=== PATIENT | male | born 1940 | race Caucasian/White ===

== ENCOUNTER 2019-06-04 15:17 | Inpatient (IN) | payer MEDICARE, OTHER ==
[~2019-06-04] VITALS: Ht 175.3 cm; Wt 61.9 kg
[2019-06-04] MEDS ORDERED: SODIUM CHLORIDE 0.9% 1,000 ML IV ONE (15:35)
[2019-06-04 15:57] LABS: BASOPHILS # (AUTO) 0.08 x10^3/uL (0-0.1); BASOPHILS % (AUTO) 1 % (0-1); EOSINOPHILS # (AUTO) 0.17 x10^3/uL (0-0.4); EOSINOPHILS % (AUTO) 2 % (1-7); LYMPHOCYTES # (AUTO) 2.66 x10^3/uL (1-3.4); LYMPHOCYTES % (AUTO) 30 % (22-44); MD NO; MEAN CORPUSCULAR HEMOGLOBIN 29.7 pg (27.5-34.5); MEAN CORPUSCULAR HGB CONC 31.4 g/dL (33.2-36.2); MEAN CORPUSCULAR VOLUME 94.7 fL (81-97); MEAN PLATELET VOLUME 6.6 fL (7.4-10.4); MONOCYTES # (AUTO) 0.63 x10^3/uL (0.2-0.8); MONOCYTES % (AUTO) 7 % (2-9); NEUTROPHILS # (AUTO) 5.28 x10^3/uL (1.8-6.8); NEUTROPHILS % (AUTO) 60 % (42-75); PLATELET COUNT 644 x10^3/uL (130-400); RED BLOOD COUNT 2.94 x10^6/uL (4.38-5.82); RED CELL DISTRIBUTION WIDTH 19.5 % (9.4-14.8)
[2019-06-04] MEDS ORDERED: SODIUM CHLORIDE 0.9% 1,000ML IVBOLUS ONE (16:00)
[2019-06-04] MEDS ORDERED: SODIUM CHLORIDE FLUSH 10ML SYR IVF ONE (16:00)
--- NOTE | 2019-06-04 16:00 | NUR ---
FIRST CONTACT WITH PT. PT SENT HERE BY RADIOLOGIST FOR ABNORMAL BARIUM SWALLOW EVAL. LAST TIME EATING/DRINKING AT 2200 06/03/19. PT'S AOX4. RESPS EVEN AND UNLABORED. PT DENIES ANY SX AT THIS TIME. BP/SPO2 MONITORS IN PLACE. CALL LIGHT WITHIN REACH.
[2019-06-04 16:08] LABS: ALANINE AMINOTRANSFERASE 10 U/L (12-78); ALBUMIN 2.2 g/dL (3.4-5.0); ANION GAP 7 mmol/L (5-15); CALCIUM 9.7 mg/dL (8.5-10.1); CHLORIDE 103 mmol/L (98-107); CREATININE 1.11 mg/dL (0.7-1.3)
[2019-06-04 16:11] LABS: ALKALINE PHOSPHATASE 54 U/L (45-117); BILIRUBIN,TOTAL 0.2 mg/dL (0.2-1.0); TOTAL PROTEIN 7.2 g/dL (6.4-8.2)
--- NOTE | 2019-06-04 16:17 | NUR ---
NS INFUSING AT THIS TIME. PT TOLERATED WELL.
--- NOTE | 2019-06-04 16:22 | NUR ---
PT PROVIDED URINE SAMPLE AT THIS TIME. UA SENT.
--- NOTE | 2019-06-04 16:22 | NUR ---
HOSPITALIST AT BEDSIDE AT THIS TIME.
[2019-06-04 16:30] LABS: MICROSCOPIC NOT IND
[2019-06-04] MEDS ORDERED: SODIUM CHLORIDE FLUSH 10ML SYR IVF PRN (16:30)
[2019-06-04 16:36] LABS: CULTURE INDICATED? NO
[2019-06-04] MEDS ORDERED: METH2.5T PO (16:52)
[2019-06-04] MEDS ORDERED: FOLI-17 PO (16:52)
[2019-06-04] MEDS ORDERED: OMEP40CA42 PO (16:53)
[2019-06-04] MEDS ORDERED: ONDA4TAB13 SL (16:53)
[2019-06-04] MEDS ORDERED: VALA500T PO (16:54)
[2019-06-04] MEDS ORDERED: METO25TA35 PO (16:54)
[2019-06-04] MEDS ORDERED: ASCO1500 PO (16:55)
[2019-06-04] MEDS ORDERED: ACETAMINOPHEN 325 MG TABLET PO PRN (17:00)
[2019-06-04] MEDS ORDERED: hydrALAzine 20 MG/ML, 1ML IVPush PRN (17:00)
[2019-06-04] MEDS ORDERED: PROMETHAZINE 25 MG/ML, 1ML IM PRN (17:00)
[2019-06-04] MEDS ORDERED: ONDANSETRON 2MG/ML, 2ML IVPush PRN (17:00)
[2019-06-04] MEDS ORDERED: LABETALOL 5MG/ML, 20ML IVPush PRN (17:00)
--- NOTE | 2019-06-04 18:36 | NUR ---
REPORT GIVEN TO NIELS KENT. ALL QUESTIONS ANSWERED.
[2019-06-04 19:29] VITALS: BP 148/78
[2019-06-04] MEDS: SODIUM CHLORIDE 0.9% 1,000 ML IV SCH (19:54)
[2019-06-04] MEDS: PANTOPRAZOLE 40 MG IV IVPush SCH (20:49)
[2019-06-05 02:14] VITALS: BP 126/64
[2019-06-05] MEDS: SODIUM CHLORIDE 0.9% 1,000 ML IV SCH ×3 (04:44→21:00)
[2019-06-05 05:50] LABS: BASOPHILS # (AUTO) 0.04 x10^3/uL (0-0.1); BASOPHILS % (AUTO) 1 % (0-1); EOSINOPHILS # (AUTO) 0.34 x10^3/uL (0-0.4); EOSINOPHILS % (AUTO) 4 % (1-7); LYMPHOCYTES # (AUTO) 2.35 x10^3/uL (1-3.4); LYMPHOCYTES % (AUTO) 28 % (22-44); MD NO; MEAN CORPUSCULAR HEMOGLOBIN 30.8 pg (27.5-34.5); MEAN CORPUSCULAR HGB CONC 31.9 g/dL (33.2-36.2); MEAN CORPUSCULAR VOLUME 96.4 fL (81-97); MEAN PLATELET VOLUME 6.8 fL (7.4-10.4); MONOCYTES # (AUTO) 0.59 x10^3/uL (0.2-0.8); MONOCYTES % (AUTO) 7 % (2-9); NEUTROPHILS # (AUTO) 5.11 x10^3/uL (1.8-6.8); NEUTROPHILS % (AUTO) 61 % (42-75); PLATELET COUNT 530 x10^3/uL (130-400); RED BLOOD COUNT 2.57 x10^6/uL (4.38-5.82); RED CELL DISTRIBUTION WIDTH 19.1 % (9.4-14.8)
[2019-06-05 06:07] LABS: ALANINE AMINOTRANSFERASE 7 U/L (12-78); ALBUMIN 1.6 g/dL (3.4-5.0); ANION GAP 9 mmol/L (5-15); CALCIUM 8.3 mg/dL (8.5-10.1); CHLORIDE 108 mmol/L (98-107); CREATININE 0.94 mg/dL (0.7-1.3)
[2019-06-05 06:09] LABS: ALKALINE PHOSPHATASE 46 U/L (45-117); BILIRUBIN,TOTAL 0.3 mg/dL (0.2-1.0); TOTAL PROTEIN 5.8 g/dL (6.4-8.2)
[2019-06-05 07:18] VITALS: BP 124/60
[2019-06-05] MEDS: PANTOPRAZOLE 40 MG IV IVPush SCH ×2 (09:53→22:30)
[2019-06-05 12:27] VITALS: BP 146/72
[2019-06-05] MEDS ORDERED: HEMORRHOIDAL OINT, 28 GM (PREP H) RC PRN (16:00)
[2019-06-05 19:08] VITALS: BP 136/56
[2019-06-06 01:00] VITALS: BP 156/55
[2019-06-06] MEDS: SODIUM CHLORIDE 0.9% 1,000 ML IV SCH (05:01)
[2019-06-06 06:57] LABS: BASOPHILS # (AUTO) 0.03 x10^3/uL (0-0.1); BASOPHILS % (AUTO) 1 % (0-1); EOSINOPHILS # (AUTO) 0.19 x10^3/uL (0-0.4); EOSINOPHILS % (AUTO) 3 % (1-7); LYMPHOCYTES # (AUTO) 1.66 x10^3/uL (1-3.4); LYMPHOCYTES % (AUTO) 22 % (22-44); MD NO; MEAN CORPUSCULAR HEMOGLOBIN 30.6 pg (27.5-34.5); MEAN CORPUSCULAR HGB CONC 31.8 g/dL (33.2-36.2); MEAN CORPUSCULAR VOLUME 95.9 fL (81-97); MEAN PLATELET VOLUME 6.5 fL (7.4-10.4); MONOCYTES # (AUTO) 0.52 x10^3/uL (0.2-0.8); MONOCYTES % (AUTO) 7 % (2-9); NEUTROPHILS # (AUTO) 5.13 x10^3/uL (1.8-6.8); NEUTROPHILS % (AUTO) 68 % (42-75); PLATELET COUNT 572 x10^3/uL (130-400); RED BLOOD COUNT 2.89 x10^6/uL (4.38-5.82); RED CELL DISTRIBUTION WIDTH 19.8 % (9.4-14.8)
[2019-06-06 07:06] LABS: ANION GAP 13 mmol/L (5-15); CALCIUM 8.5 mg/dL (8.5-10.1); CHLORIDE 109 mmol/L (98-107); CREATININE 0.91 mg/dL (0.7-1.3)
[2019-06-06 07:13] VITALS: BP 127/75
[2019-06-06] MEDS ORDERED: DEXTROSE 50%, 50ML SYRINGE IVPush ONE (08:00)
[2019-06-06] MEDS: D5%-0.45% NACL 1,000 ML IV SCH ×2 (08:19→21:18)
[2019-06-06] MEDS: PANTOPRAZOLE 40 MG IV IVPush SCH ×2 (08:20→21:17)
[2019-06-06] MEDS: IRON SUCROSE COMPLEX 100MG/5ML IV SCH (08:20)
[2019-06-06] MEDS ORDERED: BUPIVACAINE/PF 0.5% ONE (09:25)
[2019-06-06] MEDS ORDERED: FENTANYL PF 250 MCG/5ML ONE (09:58)
[2019-06-06] MEDS ORDERED: MEPERIDINE/PF 100 MG/ML ONE (11:33)
[2019-06-06] MEDS ORDERED: DEXAMETHASONE 4 MG/ML, 1ML ONE (11:46)
[2019-06-06] MEDS ORDERED: PROPOFOL 10 MG/ML, 20ML ONE (11:46)
[2019-06-06] MEDS ORDERED: GLYCOPYRROLATE 0.2MG/1ML, 5ML ONE (11:46)
[2019-06-06] MEDS ORDERED: ONDANSETRON 2MG/ML, 2ML ONE (11:46)
[2019-06-06] MEDS ORDERED: SUCCINYLCHOLINE 20 MG/ML, 10ML ONE (11:46)
[2019-06-06] MEDS ORDERED: ROPIvacaine/PF 0.2%, 20 ML ONE ×2 (11:46)
[2019-06-06] MEDS ORDERED: NEOSTIGMINE 1 MG/ML, 10ML ONE (11:46)
[2019-06-06] MEDS ORDERED: CEFAZOLIN 1,000 MG ONE (11:46)
[2019-06-06] MEDS ORDERED: ROCURONIUM 10MG/ML,5ML ONE (11:46)
[2019-06-06] MEDS ORDERED: FENTANYL PF 100 MCG/2ML ONE (12:11)
[2019-06-06] MEDS ORDERED: HYDROmorphone 2 MG/ML, 1ML ONE (12:12)
[2019-06-06] MEDS: FENTANYL PF 100 MCG/2ML IV PRN ×2 (12:12→12:26)
[2019-06-06] MEDS: HYDROmorphone 2 MG/ML, 1ML IVPush PRN ×3 (12:15→12:44)
[2019-06-06] MEDS ORDERED: hydrALAzine 20 MG/ML, 1ML IV PRN (12:30)
[2019-06-06] MEDS ORDERED: DIAZEPAM 5 MG/ML, 2ML IVPush PRN (12:30)
[2019-06-06] MEDS ORDERED: HALOPERIDOL 5 MG/ML IV PRN (12:30)
[2019-06-06] MEDS ORDERED: MEPERIDINE/PF 25MG/ML,1ML IVPush PRN (12:30)
[2019-06-06] MEDS ORDERED: PROMETHAZINE 25 MG/ML, 1ML IV PRN (12:30)
[2019-06-06] MEDS ORDERED: LABETALOL 5MG/ML, 20ML IV PRN (12:30)
[2019-06-06] MEDS ORDERED: DIAZEPAM 5 MG/ML, 2ML ONE (12:49)
[2019-06-06 14:00] VITALS: BP 151/69
[2019-06-06] MEDS: morphine SULFATE 10 MG/ML, 1ML IVPush PRN ×2 (15:03→21:17)
[2019-06-06 20:00] VITALS: BP 159/78
[2019-06-06 23:52] VITALS: BP 160/68
[2019-06-07] MEDS: morphine SULFATE 10 MG/ML, 1ML IVPush PRN ×3 (02:37→13:56)
[2019-06-07 03:25] VITALS: BP 157/74
[2019-06-07] MEDS ORDERED: TPN PER PHARMACY MC PRN (05:00)
[2019-06-07] MEDS: D5%-0.45% NACL 1,000 ML IV SCH (05:39)
[2019-06-07 06:10] LABS: BASOPHILS # (AUTO) 0.03 x10^3/uL (0-0.1); BASOPHILS % (AUTO) 0 % (0-1); EOSINOPHILS # (AUTO) 0.15 x10^3/uL (0-0.4); EOSINOPHILS % (AUTO) 1 % (1-7); LYMPHOCYTES # (AUTO) 1.97 x10^3/uL (1-3.4); LYMPHOCYTES % (AUTO) 14 % (22-44); MD NO; MEAN CORPUSCULAR HEMOGLOBIN 30.3 pg (27.5-34.5); MEAN CORPUSCULAR HGB CONC 31.5 g/dL (33.2-36.2); MEAN CORPUSCULAR VOLUME 96.2 fL (81-97); MEAN PLATELET VOLUME 6.8 fL (7.4-10.4); MONOCYTES # (AUTO) 1.07 x10^3/uL (0.2-0.8); MONOCYTES % (AUTO) 8 % (2-9); NEUTROPHILS # (AUTO) 11.03 x10^3/uL (1.8-6.8); NEUTROPHILS % (AUTO) 77 % (42-75); PLATELET COUNT 567 x10^3/uL (130-400); RED BLOOD COUNT 2.84 x10^6/uL (4.38-5.82); RED CELL DISTRIBUTION WIDTH 19.4 % (9.4-14.8)
[2019-06-07 06:12] LABS: ALBUMIN 1.6 g/dL (3.4-5.0); ANION GAP 6 mmol/L (5-15); CALCIUM 8.2 mg/dL (8.5-10.1); CHLORIDE 107 mmol/L (98-107)
[2019-06-07 06:20] LABS: ALANINE AMINOTRANSFERASE 13 U/L (12-78); ALKALINE PHOSPHATASE 44 U/L (45-117); BILIRUBIN,TOTAL 0.2 mg/dL (0.2-1.0); CREATININE 1.56 mg/dL (0.7-1.3); PREALBUMIN 8.3 mg/dL (20.0-40.0); TOTAL PROTEIN 5.8 g/dL (6.4-8.2); TRIGLYCERIDES 63 mg/dL (50-200)
[2019-06-07] MEDS ORDERED: PHARMACY MAY ADJ FOR RENAL FX MC PRN (08:30)
[2019-06-07 08:54] VITALS: BP 157/68
[2019-06-07] MEDS: IRON SUCROSE COMPLEX 100MG/5ML IV SCH (10:13)
[2019-06-07] MEDS: PANTOPRAZOLE 40 MG IV IVPush SCH ×2 (10:13→21:59)
[2019-06-07] MEDS: SODIUM CHLORIDE 0.9% 1,000 ML IV SCH ×2 (10:14→17:32)
[2019-06-07] MEDS: CEFOTETAN PMX 1GM/50ML 50 ML IV SCH (12:49)
[2019-06-07 13:28] VITALS: BP 160/77
[2019-06-07] MEDS ORDERED: FAT EMUL IV SCH (17:00)
[2019-06-07] MEDS ORDERED: FILTER, DISP 1.2 MICRON FOR TPN/PVN IV PRN (17:00)
[2019-06-07] MEDS ORDERED: SMOF TPN IV SCH (17:00)
[2019-06-07] MEDS ORDERED: AMINO ACID 10% IV SCH (17:00)
[2019-06-07] MEDS ORDERED: DEXTROSE 10% 500 ML IV PRN (17:00)
[2019-06-07] MEDS ORDERED: MORPHINE SULFATE 4 MG/ML, 1ML IVPush PRN ×2 (17:00)
[2019-06-07] MEDS ORDERED: DEXTROSE 50%, 50ML SYRINGE IVPush PRN (17:00)
[2019-06-07] MEDS ORDERED: [UNRECOGNIZED DRUG - OTHER] IV SCH (17:00)
[2019-06-07] MEDS ORDERED: DEXTROSE 70% IV SCH (17:00)
[2019-06-07] MEDS: MORPHINE SULFATE 4 MG/ML, 1ML IVPush PRN ×2 (19:53→21:59)
[2019-06-07 20:28] VITALS: BP 145/73
[2019-06-07] MEDS: INSULIN REGULAR MEDIUM DOSE Q6H X 48HRS SQ-INSULIN SCH (21:00)
[2019-06-08] MEDS: SODIUM CHLORIDE 0.9% 1,000 ML IV SCH ×3 (00:18→17:27)
[2019-06-08] MEDS: CEFOTETAN PMX 1GM/50ML 50 ML IV SCH ×2 (00:18→12:21)
[2019-06-08] MEDS: MORPHINE SULFATE 4 MG/ML, 1ML IVPush PRN ×9 (00:18→23:10)
[2019-06-08 01:32] VITALS: BP 152/65
[2019-06-08] MEDS: INSULIN REGULAR MEDIUM DOSE Q6H X 48HRS SQ-INSULIN SCH ×4 (03:35→21:00)
[2019-06-08 06:51] LABS: BASOPHILS # (AUTO) 0.03 x10^3/uL (0-0.1); BASOPHILS % (AUTO) 0 % (0-1); EOSINOPHILS # (AUTO) 0.25 x10^3/uL (0-0.4); EOSINOPHILS % (AUTO) 2 % (1-7); LYMPHOCYTES # (AUTO) 2.25 x10^3/uL (1-3.4); LYMPHOCYTES % (AUTO) 21 % (22-44); MD NO; MEAN CORPUSCULAR HEMOGLOBIN 30.3 pg (27.5-34.5); MEAN CORPUSCULAR HGB CONC 31.4 g/dL (33.2-36.2); MEAN CORPUSCULAR VOLUME 96.5 fL (81-97); MEAN PLATELET VOLUME 6.8 fL (7.4-10.4); MONOCYTES # (AUTO) 0.79 x10^3/uL (0.2-0.8); MONOCYTES % (AUTO) 7 % (2-9); NEUTROPHILS # (AUTO) 7.54 x10^3/uL (1.8-6.8); NEUTROPHILS % (AUTO) 69 % (42-75); PLATELET COUNT 450 x10^3/uL (130-400); RED BLOOD COUNT 2.71 x10^6/uL (4.38-5.82); RED CELL DISTRIBUTION WIDTH 19.9 % (9.4-14.8)
[2019-06-08 06:57] LABS: CHLORIDE 109 mmol/L (98-107)
[2019-06-08 07:03] LABS: ANION GAP 6 mmol/L (5-15); CREATININE 1.16 mg/dL (0.7-1.3)
[2019-06-08 07:32] VITALS: BP 169/79
[2019-06-08] MEDS: PANTOPRAZOLE 40 MG IV IVPush SCH ×2 (08:18→21:02)
[2019-06-08] MEDS: IRON SUCROSE COMPLEX 100MG/5ML IV SCH (08:18)
[2019-06-08 13:17] VITALS: BP 144/66
[2019-06-08] MEDS ORDERED: SMOF TPN IV SCH (17:00)
[2019-06-08] MEDS ORDERED: AMINO ACID 10% IV SCH (17:00)
[2019-06-08] MEDS ORDERED: FAT EMUL IV SCH (17:00)
[2019-06-08] MEDS ORDERED: [UNRECOGNIZED DRUG - OTHER] IV SCH (17:00)
[2019-06-08] MEDS ORDERED: DEXTROSE 70% IV SCH (17:00)
[2019-06-08] MEDS: FILTER, DISP 1.2 MICRON FOR TPN/PVN IV PRN (17:26)
[2019-06-08 19:33] VITALS: BP 152/79
[2019-06-09 01:12] VITALS: BP 154/68
[2019-06-09] MEDS: INSULIN REGULAR MEDIUM DOSE Q6H X 48HRS SQ-INSULIN SCH ×3 (03:00→15:00)
[2019-06-09 06:07] LABS: BASOPHILS # (AUTO) 0.02 x10^3/uL (0-0.1); BASOPHILS % (AUTO) 0 % (0-1); EOSINOPHILS # (AUTO) 0.29 x10^3/uL (0-0.4); EOSINOPHILS % (AUTO) 3 % (1-7); LYMPHOCYTES # (AUTO) 1.83 x10^3/uL (1-3.4); LYMPHOCYTES % (AUTO) 19 % (22-44); MD NO; MEAN CORPUSCULAR HEMOGLOBIN 30.7 pg (27.5-34.5); MEAN CORPUSCULAR HGB CONC 32.1 g/dL (33.2-36.2); MEAN CORPUSCULAR VOLUME 95.6 fL (81-97); MONOCYTES # (AUTO) 0.67 x10^3/uL (0.2-0.8); MONOCYTES % (AUTO) 7 % (2-9); NEUTROPHILS # (AUTO) 6.68 x10^3/uL (1.8-6.8); NEUTROPHILS % (AUTO) 70 % (42-75); PLATELET COUNT 390 x10^3/uL (130-400); RED BLOOD COUNT 2.71 x10^6/uL (4.38-5.82); RED CELL DISTRIBUTION WIDTH 20.1 % (9.4-14.8)
[2019-06-09 06:14] LABS: ANION GAP 5 mmol/L (5-15); CHLORIDE 107 mmol/L (98-107); CREATININE 0.87 mg/dL (0.7-1.3)
[2019-06-09 07:28] VITALS: BP 167/74
[2019-06-09] MEDS: SENNA/DOCUSATE TABLET PO SCH (08:42)
[2019-06-09] MEDS: PANTOPRAZOLE 40 MG IV IVPush SCH ×2 (08:43→21:58)
[2019-06-09] MEDS: MORPHINE SULFATE 4 MG/ML, 1ML IVPush PRN ×4 (08:43→22:05)
[2019-06-09 12:45] VITALS: BP 153/79
[2019-06-09] MEDS ORDERED: AMINO ACID 10% IV SCH (17:00)
[2019-06-09] MEDS ORDERED: DEXTROSE 70% IV SCH (17:00)
[2019-06-09] MEDS ORDERED: [UNRECOGNIZED DRUG - OTHER] IV SCH (17:00)
[2019-06-09] MEDS ORDERED: SMOF TPN IV SCH (17:00)
[2019-06-09] MEDS ORDERED: FAT EMUL IV SCH (17:00)
[2019-06-09] MEDS: FILTER, DISP 1.2 MICRON FOR TPN/PVN IV PRN (17:23)
[2019-06-09 19:42] VITALS: BP 141/75
[2019-06-09] MEDS: SODIUM CHLORIDE 0.9% 1,000 ML IV SCH (23:23)
[2019-06-10 01:35] VITALS: BP 164/74
[2019-06-10] MEDS: MORPHINE SULFATE 4 MG/ML, 1ML IVPush PRN ×3 (04:33→20:45)
[2019-06-10 05:42] LABS: ANION GAP 5 mmol/L (5-15); CALCIUM 8.1 mg/dL (8.5-10.1); CHLORIDE 106 mmol/L (98-107)
[2019-06-10 05:43] LABS: CREATININE 0.74 mg/dL (0.7-1.3)
[2019-06-10 07:55] VITALS: BP 174/69
[2019-06-10] MEDS ORDERED: FAT EMUL IV SCH ×2 (08:30→17:00)
[2019-06-10] MEDS ORDERED: [UNRECOGNIZED DRUG - OTHER] IV SCH ×2 (08:30→17:00)
[2019-06-10] MEDS ORDERED: DEXTROSE 70% IV SCH ×2 (08:30→17:00)
[2019-06-10] MEDS ORDERED: SMOF TPN IV SCH ×2 (08:30→17:00)
[2019-06-10] MEDS ORDERED: AMINO ACID 10% IV SCH ×2 (08:30→17:00)
[2019-06-10] MEDS: INSULIN REGULAR MEDIUM DOSE QDAY SQ-INSULIN SCH (09:00)
[2019-06-10] MEDS: PANTOPRAZOLE 40 MG IV IVPush SCH ×2 (09:05→20:38)
[2019-06-10] MEDS: SENNA/DOCUSATE TABLET PO SCH (09:05)
[2019-06-10 13:27] VITALS: BP 148/78
[2019-06-10] MEDS: FILTER, DISP 1.2 MICRON FOR TPN/PVN IV PRN (17:36)
[2019-06-10 19:15] VITALS: BP 154/73
[2019-06-11] VITALS (7 sets, daily range): BP systolic 138–158; BP diastolic 66–77
[2019-06-11] MEDS: hydrALAzine 20 MG/ML, 1ML IVPush SCH ×6 (02:21→22:00)
[2019-06-11] MEDS: MORPHINE SULFATE 4 MG/ML, 1ML IVPush PRN (02:30)
[2019-06-11] MEDS: SODIUM CHLORIDE 0.9% 1,000 ML IV SCH ×2 (03:58→20:37)
[2019-06-11 04:26] LABS: ALANINE AMINOTRANSFERASE 13 U/L (12-78); ALBUMIN 1.6 g/dL (3.4-5.0); ANION GAP 5 mmol/L (5-15); BASOPHILS # (AUTO) 0.03 x10^3/uL (0-0.1); BASOPHILS % (AUTO) 0 % (0-1); CALCIUM 8.4 mg/dL (8.5-10.1); CHLORIDE 110 mmol/L (98-107); CREATININE 0.73 mg/dL (0.7-1.3); EOSINOPHILS # (AUTO) 0.52 x10^3/uL (0-0.4); EOSINOPHILS % (AUTO) 6 % (1-7); LYMPHOCYTES # (AUTO) 1.87 x10^3/uL (1-3.4); LYMPHOCYTES % (AUTO) 22 % (22-44); MD NO; MEAN CORPUSCULAR HEMOGLOBIN 30.5 pg (27.5-34.5); MEAN CORPUSCULAR HGB CONC 31.9 g/dL (33.2-36.2); MEAN CORPUSCULAR VOLUME 95.7 fL (81-97); MEAN PLATELET VOLUME 7.2 fL (7.4-10.4); MONOCYTES % (AUTO) 8 % (2-9); NEUTROPHILS # (AUTO) 5.24 x10^3/uL (1.8-6.8); NEUTROPHILS % (AUTO) 63 % (42-75); PLATELET COUNT 355 x10^3/uL (130-400); RED BLOOD COUNT 2.78 x10^6/uL (4.38-5.82); RED CELL DISTRIBUTION WIDTH 20.3 % (9.4-14.8)
[2019-06-11 04:31] LABS: ALKALINE PHOSPHATASE 57 U/L (45-117); BILIRUBIN,TOTAL 0.4 mg/dL (0.2-1.0); PREALBUMIN 9.6 mg/dL (20.0-40.0); TRIGLYCERIDES 68 mg/dL (50-200)
[2019-06-11] MEDS: INSULIN REGULAR MEDIUM DOSE QDAY SQ-INSULIN SCH (09:00)
[2019-06-11] MEDS: PANTOPRAZOLE 40 MG IV IVPush SCH ×2 (09:23→20:36)
[2019-06-11] MEDS: SENNA/DOCUSATE TABLET PO SCH (09:24)
[2019-06-11] MEDS ORDERED: BISACODYL 10 MG SUPP PR PRN (10:30)
[2019-06-11] MEDS: POLYETHYLENE GLYCOL 17 GM PACKET PO SCH (13:58)
[2019-06-11] MEDS ORDERED: AMINO ACID 10% IV SCH (17:00)
[2019-06-11] MEDS ORDERED: [UNRECOGNIZED DRUG - OTHER] IV SCH (17:00)
[2019-06-11] MEDS ORDERED: SMOF TPN IV SCH (17:00)
[2019-06-11] MEDS ORDERED: DEXTROSE 70% IV SCH (17:00)
[2019-06-11] MEDS ORDERED: FAT EMUL IV SCH (17:00)
[2019-06-11] MEDS: FILTER, DISP 1.2 MICRON FOR TPN/PVN IV PRN (17:05)
[2019-06-11] MEDS: METOPROLOL TARTRATE 25 MG TABLET PO SCH (20:37)
[2019-06-12] VITALS (7 sets, daily range): BP systolic 128–151; BP diastolic 69–84
[2019-06-12] MEDS: hydrALAzine 20 MG/ML, 1ML IVPush SCH ×6 (01:59→20:49)
[2019-06-12 06:03] LABS: BASOPHILS # (AUTO) 0.04 x10^3/uL (0-0.1); BASOPHILS % (AUTO) 0 % (0-1); EOSINOPHILS # (AUTO) 0.46 x10^3/uL (0-0.4); EOSINOPHILS % (AUTO) 4 % (1-7); LYMPHOCYTES # (AUTO) 2.25 x10^3/uL (1-3.4); LYMPHOCYTES % (AUTO) 20 % (22-44); MD NO; MEAN CORPUSCULAR HEMOGLOBIN 30.5 pg (27.5-34.5); MEAN CORPUSCULAR VOLUME 95.2 fL (81-97); MEAN PLATELET VOLUME 7.4 fL (7.4-10.4); MONOCYTES # (AUTO) 0.93 x10^3/uL (0.2-0.8); MONOCYTES % (AUTO) 8 % (2-9); NEUTROPHILS # (AUTO) 7.41 x10^3/uL (1.8-6.8); NEUTROPHILS % (AUTO) 67 % (42-75); PLATELET COUNT 376 x10^3/uL (130-400); RED BLOOD COUNT 2.93 x10^6/uL (4.38-5.82); RED CELL DISTRIBUTION WIDTH 21.3 % (9.4-14.8)
[2019-06-12 06:11] LABS: CHLORIDE 108 mmol/L (98-107)
[2019-06-12 06:18] LABS: ANION GAP 8 mmol/L (5-15); CALCIUM 8.7 mg/dL (8.5-10.1)
[2019-06-12] MEDS: SENNA/DOCUSATE TABLET PO SCH (08:38)
[2019-06-12] MEDS: PANTOPRAZOLE 40 MG IV IVPush SCH ×2 (08:38→20:48)
[2019-06-12] MEDS: INSULIN REGULAR MEDIUM DOSE QDAY SQ-INSULIN SCH (08:42)
[2019-06-12] MEDS: POLYETHYLENE GLYCOL 17 GM PACKET PO SCH (14:00)
[2019-06-12 15:08] LABS: CLOSTRIDIUM DIFFICILE ANTIGEN NEGATIVE; CLOSTRIDIUM DIFFICILE TOXIN NEGATIVE (Negative)
[2019-06-12] MEDS ORDERED: AMINO ACID 10% IV SCH (17:00)
[2019-06-12] MEDS ORDERED: DEXTROSE 70% IV SCH (17:00)
[2019-06-12] MEDS ORDERED: FAT EMUL IV SCH (17:00)
[2019-06-12] MEDS ORDERED: SMOF TPN IV SCH (17:00)
[2019-06-12] MEDS ORDERED: [UNRECOGNIZED DRUG - OTHER] IV SCH (17:00)
[2019-06-12] MEDS: FILTER, DISP 1.2 MICRON FOR TPN/PVN IV PRN (17:11)
[2019-06-12] MEDS: LACTOBACILLUS CHEW TABLET PO SCH ×2 (17:11→20:48)
[2019-06-12] MEDS: METOPROLOL TARTRATE 25 MG TABLET PO SCH (20:48)
[2019-06-13] VITALS (7 sets, daily range): BP systolic 119–152; BP diastolic 55–73
[2019-06-13] MEDS: hydrALAzine 20 MG/ML, 1ML IVPush SCH ×6 (01:35→22:56)
[2019-06-13] MEDS: SODIUM CHLORIDE 0.9% 1,000 ML IV SCH ×2 (02:50→17:26)
[2019-06-13 03:03] LABS: BASOPHILS # (AUTO) 0.02 x10^3/uL (0-0.1); BASOPHILS % (AUTO) 0 % (0-1); EOSINOPHILS % (AUTO) 5 % (1-7); LYMPHOCYTES # (AUTO) 2.28 x10^3/uL (1-3.4); LYMPHOCYTES % (AUTO) 24 % (22-44); MD NO; MEAN CORPUSCULAR HEMOGLOBIN 29.4 pg (27.5-34.5); MEAN CORPUSCULAR HGB CONC 31.3 g/dL (33.2-36.2); MEAN CORPUSCULAR VOLUME 93.7 fL (81-97); MEAN PLATELET VOLUME 7.3 fL (7.4-10.4); MONOCYTES # (AUTO) 0.95 x10^3/uL (0.2-0.8); MONOCYTES % (AUTO) 10 % (2-9); NEUTROPHILS # (AUTO) 5.88 x10^3/uL (1.8-6.8); NEUTROPHILS % (AUTO) 61 % (42-75); PLATELET COUNT 326 x10^3/uL (130-400); RED BLOOD COUNT 2.55 x10^6/uL (4.38-5.82); RED CELL DISTRIBUTION WIDTH 21.1 % (9.4-14.8)
[2019-06-13 03:14] LABS: ANION GAP 5 mmol/L (5-15); CHLORIDE 110 mmol/L (98-107); CREATININE 0.83 mg/dL (0.7-1.3)
[2019-06-13] MEDS: POLYETHYLENE GLYCOL 17 GM PACKET PO SCH (08:06)
[2019-06-13] MEDS: SENNA/DOCUSATE TABLET PO SCH (08:06)
[2019-06-13] MEDS: INSULIN REGULAR MEDIUM DOSE QDAY SQ-INSULIN SCH (09:00)
[2019-06-13] MEDS: LACTOBACILLUS CHEW TABLET PO SCH ×3 (09:14→21:40)
[2019-06-13] MEDS: PANTOPRAZOLE 40 MG IV IVPush SCH ×2 (09:15→21:39)
[2019-06-13] MEDS ORDERED: FAT EMUL IV SCH (17:00)
[2019-06-13] MEDS ORDERED: FILTER, DISP 1.2 MICRON FOR TPN/PVN IV PRN (17:00)
[2019-06-13] MEDS ORDERED: AMINO ACID 10% IV SCH (17:00)
[2019-06-13] MEDS ORDERED: [UNRECOGNIZED DRUG - OTHER] IV SCH (17:00)
[2019-06-13] MEDS ORDERED: DEXTROSE 70% IV SCH (17:00)
[2019-06-13] MEDS ORDERED: SMOF TPN IV SCH (17:00)
[2019-06-13] MEDS: METOPROLOL TARTRATE 25 MG TABLET PO SCH (21:40)
[2019-06-14 00:42] VITALS: BP 126/69
[2019-06-14] MEDS: hydrALAzine 20 MG/ML, 1ML IVPush SCH ×4 (02:00→14:47)
[2019-06-14 02:25] VITALS: BP 127/69
[2019-06-14 05:33] VITALS: BP 118/52
[2019-06-14] MEDS: POLYETHYLENE GLYCOL 17 GM PACKET PO SCH (08:26)
[2019-06-14] MEDS: SENNA/DOCUSATE TABLET PO SCH (08:26)
[2019-06-14] MEDS: SODIUM CHLORIDE 0.9% 1,000 ML IV SCH (08:37)
[2019-06-14] MEDS: PANTOPRAZOLE 40 MG IV IVPush SCH (08:37)
[2019-06-14] MEDS: LACTOBACILLUS CHEW TABLET PO SCH ×2 (08:37→14:47)
[2019-06-14 08:39] VITALS: BP 138/68
[2019-06-14] MEDS: INSULIN REGULAR MEDIUM DOSE QDAY SQ-INSULIN SCH (08:39)
[2019-06-14] MEDS ORDERED: POLY17PO5 PO (13:16)
[2019-06-14] MEDS ORDERED: SENN-193 PO (13:16)
[2019-06-14] MEDS ORDERED: ACID1TAB7 PO (13:16)
[2019-06-14] MEDS ORDERED: PANT40TA5 PO (13:16)
[2019-06-14 14:43] VITALS: BP 158/67
[2019-06-14 16:25] VITALS: BP 131/72
[2019-06-14] MEDS ORDERED: SMOF TPN IV SCH (17:00)
[2019-06-14] MEDS ORDERED: AMINO ACID 10% IV SCH (17:00)
[2019-06-14] MEDS ORDERED: DEXTROSE 70% IV SCH (17:00)
[2019-06-14] MEDS ORDERED: FILTER, DISP 1.2 MICRON FOR TPN/PVN IV PRN (17:00)
[2019-06-14] MEDS ORDERED: [UNRECOGNIZED DRUG - OTHER] IV SCH (17:00)
[2019-06-14] MEDS ORDERED: FAT EMUL IV SCH (17:00)
== END 2019-06-14 17:31 | disposition home health service (06) | DRG 326 ==
LOC: ED 16:16 → EDIP 16:17 → ED 16:33 → 3N 19:06 → 4NE 06-05 23:50 → DCLOUNGE 06-14 17:05
PROVIDERS: ADMIT Internal Medicine; ATTEND Internal Medicine
PROC: 0D160ZA Bypass Stomach to Jejunum, Open Approach (ICD-10-PCS; 2019-06-06)
PROC: 3E0T3BZ Introduction of Anesthetic Agent into Peripheral Nerves and Plexi, Percutaneous Approach (ICD-10-PCS; 2019-06-06)
PROC: 008Q0ZZ Division of Vagus Nerve, Open Approach (ICD-10-PCS; principal; 2019-06-06 10:00)
PROC: 02HV33Z Insertion of Infusion Device into Superior Vena Cava, Percutaneous Approach (ICD-10-PCS; 2019-06-07)
PROC: B548ZZA Ultrasonography of Superior Vena Cava, Guidance (ICD-10-PCS; 2019-06-07)
PROC: B5181ZA Fluoroscopy of Superior Vena Cava using Low Osmolar Contrast, Guidance (ICD-10-PCS; 2019-06-07)
PROC: 3E0436Z Introduction of Nutritional Substance into Central Vein, Percutaneous Approach (ICD-10-PCS; 2019-06-07)
DX: K31.1 Adult hypertrophic pyloric stenosis (principal); E43 Unspecified severe protein-calorie malnutrition; N17.0 Acute kidney failure with tubular necrosis; K31.5 Obstruction of duodenum; E87.2 Acidosis; D50.9 Iron deficiency anemia, unspecified; E16.2 Hypoglycemia, unspecified; E83.39 Other disorders of phosphorus metabolism; I11.9 Hypertensive heart disease without heart failure; K44.9 Diaphragmatic hernia without obstruction or gangrene; K59.00 Constipation, unspecified; M19.90 Unspecified osteoarthritis, unspecified site; Z66 Do not resuscitate; Z87.01 Personal history of pneumonia (recurrent); Z87.11 Personal history of peptic ulcer disease; Z68.20 Body mass index [BMI] 20.0-20.9, adult
CPT/HCPCS: 36415; 36573; 80048; 80053; 81003; 82330; 82607; 82728; 82962; 83540; 83550; 83735; 84100; 84134; 84443; 84478; 85025; 86850; 86900; 87324; 88302; 93005; 99285; G0378; J0610; J0690; J1100; J1170; J1756; J1815; J2405; J2704; J2710; J2795; J3010; J3360; J3475; J3480; C1751; C9113; J0330; J0360; J2175; J2270; J3420; J3490; J7030

== ENCOUNTER → 2019-06-04 | Outpatient (CLI) | payer MEDICARE, OTHER ==
[~2019-06-04] MED LIST: ASCO1500 PO; FOLI-17 PO; METH2.5T PO; METO25TA35 PO; OMEP40CA42 PO; ONDA4TAB13 SL; VALA500T PO
== END | disposition home or self-care (01) ==
LOC: RAD 13:29
PROVIDERS: ATTEND Internal Medicine
DX: K44.9 Diaphragmatic hernia without obstruction or gangrene (principal); K31.5 Obstruction of duodenum; J98.4 Other disorders of lung; Q39.3 Congenital stenosis and stricture of esophagus
CPT/HCPCS: 74241